=== PATIENT | female | born 2005 | race Caucasian/White ===

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

== ENCOUNTER 2023-07-23 18:28 | Emergency (ER) | payer MEDICAID, SELFPAY ==
[2023-07-23 18:29] VITALS: BP 108/68; PULSE 93; RESP 16; TEMP 35.6; O2SAT 98; BMI 26.1
--- NOTE | 2023-07-23 18:58 | RAD_ITS ---
STUDY: X-RAY - PELVIS AND LEFT HIP REASON FOR EXAM: Female, 18 years old. pain TECHNIQUE: 3 views of the pelvis and hip. COMPARISON: None. FINDINGS: There is a non-specific bowel gas pattern. Normal visualized soft tissue structures. Normal bilateral iliac wings, sacroiliac joints and visualized sacrum. Normal bilateral superior and inferior pubic rami. Normal pubic symphysis. Normal bilateral ischial tuberosities. Normal visualized femoral head. Normal acetabulum. Normal hip joint. RAD/HIP, UNI W/ Pelvis 2-3 Views IMPRESSION: Normal x-ray examination of the pelvis and hip. Electronically Signed: Wesley Hernandez MD at 19:28 EDT ,
[2023-07-23 20:55] VITALS: RESP 16
--- NOTE | 2023-07-23 23:13 | EDS_ITS ---
HPI History of Present Illness Chief Complaint: Lower Extremity Injury Narrative Narrative: 18-year-old female with left hip pain. She states has had this in the past. Sometimes is on the right hip and sometimes on the left. Today it settled in the left hip. He is able to ambulate. She describes pain with internal rotation and flexion of the hip. Denies any direct trauma. No numbness or tingling. PFSH PFSH Home Medications cyclobenzaprine 10 mg tablet 10 mg PO TID PRN Muscle Spasm #20 TABLETS 07/23/23 [Rx Last Taken Unknown] naproxen 500 mg tablet (Naprosyn) 500 mg PO BID PRN pain #20 tabs 07/23/23 [Rx Last Taken Unknown] Allergy/AdvReac Type Severity Reaction Status Date / Time No Known Allergies Allergy Verified 07/23/23 18:29 Social History Smoking Status: Never smoker ROS ROS ED Constitutional Constitutional ED: Denies chills, fever(s) or sweats Eyes Eyes: Denies blurry vision or change in vision ENT ENT ED: Denies ear pain or sore throat Cardiovascular Cardiovascular: Denies chest pain, palpitations or racing heartbeat Respiratory/Chest Respiratory/Chest: Denies cough, dyspnea or sputum Gastrointestinal Gastrointestinal: Denies abdominal pain, constipation, diarrhea, nausea or vomiting Genitourinary Genitourinary ED: Denies dysuria, hematuria or urinary frequency Musculoskeletal Musculoskeletal: Reports other Details: Left hip pain ; Denies arthralgias, myalgias or neck pain Integumentary Denies abscess, Abrasions or rash Neurologic Neurologic: Denies headache(s), paresthesias or weakness Psychiatric Psychiatric: Denies anxiety, depression, suicidal ideation or suicidal thoughts Endocrine Endocrinology: Denies polydipsia or polyuria EXAM Physical Exam Const Vital Signs: 07/23/23 18:29 07/23/23 20:55 Temperature 96.1 F L Temperature Source Temporal Pulse Rate 93 Respiratory Rate 16 16 Blood Pressure 108/68 Blood Pressure Mean 81 Pulse Ox 98 Oxygen Delivery Method Room Air Positive well nourished General Appearance ED: NAD HEENT Reports moist mucous membranes normocephalic and atraumatic Resp normal respiratory effort Cardio regular rate and regular rhythm Extremity Extremity Narrative: Tenderness palpation over the left greater trochanter. There is pain elicited with internal rotation and flexion of the hip. No obvious deformity. Neuro oriented x3 and CN's II-XII intact bilaterally Motor Exam: strength 5/5 throughout Psych mental status grossly normal MDM MDM MDM Narrative Medical decision making narrative: Patient exam is consistent with a musculoskeletal injury. I did obtain an x-ray of the left hip which shows no acute fracture or subluxation on my interpretation. I counseled the patient that she would need to do more stretching exercises at home. Is understanding of this. I did delinquency counselor her that she will need probably anti-inflammatories and Tylenol if she states that she does not like to take pills. After long discussion she was willing to take a prescription for Naprosyn and Flexeril as needed but I did recommend to her that she do stretching exercises which were explained to her. Patient discharged stable condition. Impression: 1. Left hip strain. Radiography Diagnostic Testing: Clinical Impression(s) from Imaging Studies Hip/Pelvis X-Ray 07/23/23 18:58 IMPRESSION: Normal x-ray examination of the pelvis and hip. Electronically Signed: Wesley Hernandez MD at 19:28 EDT Reading Location ID and State: [address] [place] [address] Tel , Service support , Discharge Plan Triage Chief Complaint: Lower Extremity Injury ED Provider: Esdras Doshi Dx/Rx/DC Orders Instructions: ED Hip Strain Prescriptions: New naproxen [Naprosyn] 500 mg tablet 500 mg PO BID PRN (Reason: pain) Qty: 20 0RF cyclobenzaprine 10 mg tablet 10 mg PO TID PRN (Reason: Muscle Spasm) Qty: 20 0RF Primary Care Provider: Taty Finnegan,Out of Referrals: [facility] ,Out of [Primary Care Provider] - Disposition Disposition: Home, Self Care Discharge Date/Time: 07/23/23 20:56
== END 2023-07-23 20:56 | disposition home or self-care (01) ==
PROVIDERS: Emergency Provider Student in an Organized Health Care Education/Training Program; Visit Provider Student in an Organized Health Care Education/Training Program
DX: S73.102A Unspecified sprain of left hip, initial encounter (principal); X58.XXXA Exposure to other specified factors, initial encounter
CPT/HCPCS: 73502; 99282